=== PATIENT | female | born 1950 | race Caucasian/White ===

== ENCOUNTER 2017-12-30 13:02 | Emergency (ER) | payer OTHER, BC ==
--- OUTSIDE RECORDS SUMMARY | 2017-12-30 13:05 | XMS REPORT | Clinical Summary ---
:1950 Author Organization [facility] Address [address] [place] [address] Care Team Providers Name Role Phone Asked, No Pcp Primary Care Provider Unavailable Allergies Not on File Current Medications Not on file Active Problems Not on file Encounters Date Type Specialty Care Team Description 10/13/2017 Hospital Encounter Radiology Moiz Frost, Encounter for screening MD mammogram for malignant neoplasm of breast 10/13/2017 Ancillary Orders Access Moiz Frost, Encounter for screening MD mammogram for malignant neoplasm of breast 10/03/2017 Transcribe Orders Access Moiz Frost, Menopausal problem MD (Primary Dx) 10/03/2017 Transcribe Orders Access Moiz Frost, Encounter for screening MD mammogram for malignant neoplasm of breast (Primary Dx) after 12/29/2016 Family History Medical History Relation Name Comments Breast cancer Maternal Grandmother Breast cancer Mother Relation Name Status Comments Maternal Grandmother Mother Social History Tobacco Use Types Packs/Day Years Used Date Never Assessed Sex Assigned at Date Recorded Not on file Last Filed Vital Signs Not on file Plan of Treatment Date Type Specialty Care Team Description 09/21/2018 [place] [address] [facility] [address] [place], [place] [address] Health Maintenance Due Date Last Done Comments COLONOSCOPY 2001 ZOSTER VACCINE 2011 PNEUMOCOCCAL POLYSACCHARIDE VACCINE 2016 AGE 65 AND OVER PNEUMOCOCCAL-13 2016 INFLUENZA VACCINE 04/25/2018 MAMMOGRAM 10/13/2019 10/13/2017, 09/21/2016, 08/11/2015, Additional history exists Results Mammo Breast Screen Tomosynthesis Bilateral (10/13/2017 11:14 AM) Specimen Performing Laboratory [facility] [address] [place] [address] Narrative PROCEDURE: MAMMO BREAST SCREEN TOMOSYNTHESIS BILATERAL Computer aided detection was utilized for the interpretation. Bilateral digital screening mammogram was performed with tomosynthesis. COMPARISON EXAMS: [id number] DENSITY:There are scattered areas of fibroglandular density. FINDINGS: No suspicious finding is seen. There are vascular calcifications. Nodular densities appear stable. IMPRESSION: No mammographic evidence of malignancy. Recommend annual screening mammography and correlation with physical exam. BI-RADS 2:BENIGN This facility is accredited by the [employer] for Mammography. A negative x-ray report should not delay biopsy if a dominant or clinically suspicious mass is present.Not all cancers are identified by x-ray. [id number] after 12/29/2016 Insurance Payer Benefit Plan / Group Subscriber ID Type Phone Address MEDICARE MEDICARE PART A AND B xxxxxxxxxx Medicare [place], [place] BCBS BCBS CHOICE PPO/FEDERAL EMPL PPO xxxxxxxxxxxx PPO Home: [address] [place], [place] [phone] [place] [address]
[2017-12-30 15:01] LABS: Absolute Lymphocytes (CBC) 0.9 K/uL (0.7-4.9); Absolute Monocytes 0.3 K/uL (0.1-1.3); Absolute Neutrophil 8.1 K/uL (1.8-8.0); Basophils % 0.7 % (0-1.3); Eosinophils % 0.1 % (0-4.4); Hematocrit 41.8 % (36.0-45.0); Lymphocytes % 9.3 % (15.3-44.8); MCV 87.1 fL (80-100); MPV 8.7 fL (7.6-11.3); Monocytes % 3.4 % (3.3-12.3)
[2017-12-30 15:19] LABS: Albumin 5.2 g/dL (3.2-5.5); Bilirubin Direct 0.1 mg/dL (0-0.2); Bilirubin Total 0.7 mg/dL (0.3-1.2); Protein, Total 8.1 g/dL (6.0-8.3)
[2017-12-30] MEDS ORDERED: NA CHLORIDE 0.9% 1,000 ML ONE (16:05)
[2017-12-30] MEDS ORDERED: ONDANSETRON 4 MG/2 ML VIAL ONE ×2 (16:05→19:23)
[2017-12-30] MEDS ORDERED: HYDRALAZINE HCL 20 MG/ML VIAL ONE ×2 (16:05→19:23)
[2017-12-30 16:20] LABS: Blood Morphology Comment NOT SEEN (NOT SEEN); Platelet Estimate ADEQ; Urine White Blood Cell Casts OK
[2017-12-30] MEDS ORDERED: HYDROCODONE/APAP 10/325 TAB ONE (16:23)
--- NOTE | 2017-12-30 18:01 | RAD REPORT ---
EXAM DESCRIPTION: CTAbdomen Pelvis W Contrast - 12/30/2017 5:51 pm CLINICAL HISTORY: Abdominal pain. COMPARISON: None. TECHNIQUE: Biphasic CT imaging of the abdomen and pelvis was performed with 100 ml non-ionic IV cont rast. All CT scans are performed using dose optimization technique as appropriate and may include automated exposure control or mA/KV adjustment according to patient size. FINDINGS: The lung bases are clear. The liver, spleen, pancreas, adrenal glands and kidneys are within normal limits. No bowel obstruction, free air, free fluid or abscess. The appendix is normal. No evidence of signi ficant lymphadenopathy. No suspicious bony findings. A pessary device is noted. IMPRESSION: No acute intra-abdominal or pelvic finding.
--- NOTE | 2017-12-30 18:15 | ER ---
Nurse's Notes [facility] Name: Laury Lomeli Age: 67 yrs Sex: Female : 1950 Arrival Date: 12/30/2017 Time: 13:03 Bed 13 Private MD: Diagnosis: Low back pain;Lower abdominal pain, unspecified;Essential (primary) hypertension Presentation: 12/30 13:05 Presenting complaint: Patient states: RLQ and right lower back pain and nausea since hb this morning. Pt also reports she had a colonoscopy November 23 and has been having lower abdominal pain and bloating ever since. Transition of care: patient was not received from another setting of care. Onset of symptoms is unknown. Care prior to arrival: None. 13:05 Method Of Arrival: Ambulatory hb 13:05 Acuity: JAI 3 hb Historical: - Allergies: 13:08 Sulfa (Sulfonamide Antibiotics); hb - Home Meds: 13:08 levothyroxine 50 mcg tab 1 tab once daily [Active]; lisinopril 20 mg Oral tab 1 tab hb once daily [Active]; Contrave 8-90 mg Oral TbER two tabs in the monring and one at night [Active]; - PMHx: 13:08 Hypothyroidism; Hypertension; sciatica; hb - PSHx: 13:08 Hysterectomy; hb - Immunization history:: Adult Immunizations up to date. - Social history:: Smoking status: Patient/guardian denies using tobacco. - Family history:: not pertinent. - History obtained from: . Screenin:20 Abuse screen: Denies threats or abuse. Nutritional screening: No deficits noted. rb1 Tuberculosis screening: No symptoms or risk factors identified. Fall Risk None identified. Assessment: 14:20 General: Appears uncomfortable, Behavior is calm, cooperative. General: Denies fever. rb1 General: pt. had a colonoscopy done on November 23, 2017 and recently started having abdominal pain.. Pain: Complains of pain in right lower quadrant and right lower back Pain currently is 9 out of 10 on a pain scale. Neuro: Level of Consciousness is awake, alert, obeys commands, Oriented to person, place, time, situation. Cardiovascular: Capillary refill < 3 seconds is brisk in bilateral fingers. Respiratory: Airway is patent Respiratory effort is even, unlabored, Respiratory pattern is regular, symmetrical. GI: Bowel sounds present X 4 quads. Abd is soft Abdomen is tender to palpation in right lower quadrant Reports diarrhea, nausea. : No signs and/or symptoms were reported regarding the genitourinary system. Derm: Skin is pink, warm \T\ dry. Musculoskeletal: Range of motion: intact in all extremities. 15:20 Reassessment: Patient appears in no apparent distress at this time. Patient and/or rb1 family updated on plan of care and expected duration. Pain level reassessed. Patient is alert, oriented x 3, equal unlabored respirations, skin warm/dry/pink. 16:20 Reassessment: Patient appears in no apparent distress at this time. No changes from rb1 previously documented assessment. 16:27 Reassessment: Called CT to let them know that the pt. finished her contrast. rb1 17:19 Reassessment: Patient appears in no apparent distress at this time. Patient and/or rb1 family updated on plan of care and expected duration. Pain level reassessed. Patient is alert, oriented x 3, equal unlabored respirations, skin warm/dry/pink. 17:59 Reassessment: Pt. is back from CT. rb1 18:12 Reassessment: Patient appears in no apparent distress at this time. Patient and/or rb1 family updated on plan of care and expected duration. Pain level reassessed. Patient is alert, oriented x 3, equal unlabored respirations, skin warm/dry/pink. at bedside. 19:26 Reassessment: JEEPER OPERATOR stated that pt could be discharge when pain and BP have improved. tl2 20:10 Reassessment: Patient appears in no apparent distress at this time. Patient and/or tl2 family updated on plan of care and expected duration. Pain level reassessed. Patient is alert, oriented x 3, equal unlabored respirations, skin warm/dry/pink. Pt verbalized understanding of discharge instructions, need for follow up and prescription usage. Pt began vomiting during discharge, JEEPER OPERATOR notified, new orders see MAR. new prescription. Vital Signs: 13:08 BP 192 / 111; Pulse 92; Resp 16; Temp 97.2; Pulse Ox 100% on R/A; Weight 69.4 kg; hb Height 5 ft. 3 in. (160.02 cm); Pain 6/10; 14:20 BP 199 / 95; Pulse 71; Resp 19; Pulse Ox 100% on R/A; Pain 9/10; rb1 15:00 BP 196 / 90; Pulse 67; Resp 18; Pulse Ox 100% ; rb1 15:47 BP 193 / 91; Pulse 69; Resp 17; Pulse Ox 100% on R/A; rb1 16:30 BP 183 / 93; Pulse 78; Resp 19; Pulse Ox 100% on R/A; rb1 17:30 BP 181 / 92; Pulse 96; Resp 17; Pulse Ox 100% on R/A; rb1 20:10 BP 146 / 88; Pulse 106; Resp 20; Pulse Ox 100% on R/A; tl2 13:08 Body Mass Index 27.10 (69.40 kg, 160.02 cm) hb ED Course: 13:03 Patient arrived in ED. as 13:08 Triage completed. hb 13:08 Arm band placed on left wrist. hb 14:20 Patient has correct armband on for positive identification. Bed in low position. Call rb1 light in reach. Side rails up X 1. Pulse ox on. NIBP on. 14:20 Inserted saline lock: 22 gauge in right antecubital area, using aseptic technique. rb1 Blood collected. 14:21 Gretta Meeks, ANTONETTE is Primary Nurse. rb1 14:28 Angelina Solis FNP is PHCP. kav 14:28 Jd Bocanegra MD is Attending Physician. kav 17:50 CT Abd/Pelvis - W/Contrast: LLQ and RLQ Abd pain In Process Unspecified. EDMS 18:22 PHCP role handed off by Angelina Solis FNP pm1 18:22 Jovon Ling NP is PHCP. pm1 19:00 Report given to ANTONETTE Ruvalcaba. rb1 20:10 No provider procedures requiring assistance completed. IV discontinued, intact, tl2 bleeding controlled, No redness/swelling at site. Pressure dressing applied. Administered Medications: 15:49 Drug: hydrALAZINE 10 mg {Note: BP 193/91 P 71.} Route: IV; Rate: bolus; Site: right rb1 antecubital; 15:51 Follow up: IV Status: Completed infusion rb1 16:09 Follow up: Response: No adverse reaction; Blood pressure is lowered rb1 15:49 Drug: NS 0.9% 1000 ml Route: IV; Rate: 1 bolus; Site: right antecubital; rb1 17:00 Follow up: IV Status: Completed infusion rb1 15:49 Drug: Zofran 4 mg Route: IVP; Site: right antecubital; rb1 16:09 Follow up: Response: No adverse reaction; Nausea is decreased rb1 16:04 Drug: [place] 10 mg-325 mg 1 tabs Route: PO; rb1 16:35 Follow up: Response: No adverse reaction; Pain is decreased rb1 19:05 Drug: hydrALAZINE 10 mg Route: IV; Rate: bolus; Site: right antecubital; rb1 20:14 Follow up: IV Status: Completed infusion tl2 19:05 Drug: morphine 4 mg Route: IVP; Site: right antecubital; rb1 19:40 Follow up: Response: No adverse reaction; Pain is decreased tl2 19:05 Drug: Zofran 4 mg Route: IVP; Site: right antecubital; rb1 20:14 Follow up: Response: No adverse reaction; Nausea is decreased tl2 20:10 Drug: Zofran 4 mg Route: PO; tl2 20:14 Follow up: Response: No adverse reaction; Medication administered at discharge. tl2 Outcome: 18:14 Discharge ordered by . richie 20:10 Discharged to home ambulatory, with family. tl2 20:10 Condition: stable 20:10 Discharge instructions given to patient, family, Instructed on discharge instructions, follow up and referral plans. medication usage, Demonstrated understanding of instructions, follow-up care, medications, Prescriptions given X 2. 20:15 Patient left the ED. tl2 Signatures: Dispatcher [employer] EDMS Angelina Solis, FURNITURE MOVER FURNITURE MOVERNikki Al Rebecca RN RN rb1 Jovon Ling, MOLLY JEEPER OPERATOR pm1 Roxane Omer RN RN Peg Shell RN RN tl2 Corrections: (The following items were deleted from the chart) 15:06 14:47 BP 199 / 95; Pulse 71bpm; Resp 19bpm; Pulse Ox 100% RA; Pain 9/10; rb1 rb1 19:16 17:05 hydrALAZINE 10 mg IV at bolus in right antecubital rb1 rb1 19:16 17:05 morphine 4 mg IVP in right antecubital rb1 rb1
--- NOTE | 2017-12-30 18:15 | EDPHYS ---
Physician Documentation [facility] Name: Laury Lomeli Age: 67 yrs Sex: Female : 1950 Arrival Date: 12/30/2017 Time: 13:03 Bed 13 Private MD: ED Physician Jd Bocanegra HPI: 12/30 14:28 This 67 yrs old Female presents to ER via Ambulatory with complaints of kav Abdominal Pain, Back Pain. 15:55 The patient presents with abdominal pain right lower quadrant, in the left lower kav quadrant. Onset: The symptoms/episode began/occurred acutely. 15:56 The symptoms do not radiate. Associated signs and symptoms: Pertinent positives: kav nausea, bloating. The symptoms are described as constant, dull. Modifying factors: The symptoms are alleviated by nothing, the symptoms are aggravated by touching the area. Modifying factors: The symptoms are alleviated by. Severity of pain: At its worst the pain was moderate just prior to arrival. The patient has not experienced similar symptoms in the past. Colonoscopy November 23, 2017 in [place], [place]. Patient reports finding of "...ulcer in colon".. 15:58 Patient reports that she has been taking prescription : Mobic daily for the past 19 kav days. Rates abdominal pain \\T\\ 03/04. Historical: - Allergies: 13:08 Sulfa (Sulfonamide Antibiotics); hb - Home Meds: 13:08 levothyroxine 50 mcg tab 1 tab once daily [Active]; lisinopril 20 mg Oral tab 1 tab hb once daily [Active]; Contrave 8-90 mg Oral TbER two tabs in the monring and one at night [Active]; - PMHx: 13:08 Hypothyroidism; Hypertension; sciatica; hb - PSHx: 13:08 Hysterectomy; hb - Immunization history:: Adult Immunizations up to date. - Social history:: Smoking status: Patient/guardian denies using tobacco. - Family history:: not pertinent. - History obtained from: . ROS: 15:58 Constitutional: Negative for fever, chills, and weight loss, Eyes: Negative for injury, kav pain, redness, and discharge, ENT: Negative for injury, pain, and discharge, Neck: Negative for injury, pain, and swelling, Cardiovascular: Negative for chest pain, palpitations, and edema, Respiratory: Negative for shortness of breath, cough, wheezing, and pleuritic chest pain, Back: Negative for injury and pain, : Negative for injury, bleeding, discharge, and swelling, MS/Extremity: Negative for injury and deformity, Skin: Negative for injury, rash, and discoloration, Neuro: Negative for headache, weakness, numbness, tingling, and seizure, Psych: Negative for depression, anxiety, suicide ideation, homicidal ideation, and hallucinations, Allergy/Immunology: Negative for hives, rash, and allergies, Endocrine: Negative for neck swelling, polydipsia, polyuria, polyphagia, and marked weight changes, Hematologic/Lymphatic: Negative for swollen nodes, abnormal bleeding, and unusual bruising. 15:58 Abdomen/GI: Positive for abdominal pain, nausea, Abdominal bloating. Exam: 15:58 Constitutional: This is a well developed, well nourished patient who is awake, alert, kav and in no acute distress. Head/Face: Normocephalic, atraumatic. Eyes: Pupils equal round and reactive to light, extra-ocular motions intact. Lids and lashes normal. Conjunctiva and sclera are non-icteric and not injected. Cornea within normal limits. Periorbital areas with no swelling, redness, or edema. ENT: Nares patent. No nasal discharge, no septal abnormalities noted. Tympanic membranes are normal and external auditory canals are clear. Oropharynx with no redness, swelling, or masses, exudates, or evidence of obstruction, uvula midline. Mucous membranes moist. Neck: Trachea midline, no thyromegaly or masses palpated, and no cervical lymphadenopathy. Supple, full range of motion without nuchal rigidity, or vertebral point tenderness. No Meningismus. Chest/axilla: Normal chest wall appearance and motion. Nontender with no deformity. No lesions are appreciated. Cardiovascular: Regular rate and rhythm with a normal S1 and S2. No gallops, murmurs, or rubs. Normal PMI, no JVD. No pulse deficits. Respiratory: Lungs have equal breath sounds bilaterally, clear to auscultation and percussion. No rales, rhonchi or wheezes noted. No increased work of breathing, no retractions or nasal flaring. Back: No spinal tenderness. No costovertebral tenderness. Full range of motion. Skin: Warm, dry with normal turgor. Normal color with no rashes, no lesions, and no evidence of cellulitis. MS/ Extremity: Pulses equal, no cyanosis. Neurovascular intact. Full, normal range of motion. Neuro: Awake and alert, GCS 15, oriented to person, place, time, and situation. Cranial nerves II-XII grossly intact. Motor strength 5/5 in all extremities. Sensory grossly intact. Cerebellar exam normal. Normal gait. Psych: Awake, alert, with orientation to person, place and time. Behavior, mood, and affect are within normal limits. 15:58 Abdomen/GI: Inspection: distension, that is mild, in the right lower quadrant and left lower quadrant, Bowel sounds: active, all quadrants, Palpation: soft, moderate abdominal tenderness, in the suprapubic area, right lower quadrant and left lower quadrant. Vital Signs: 13:08 BP 192 / 111; Pulse 92; Resp 16; Temp 97.2; Pulse Ox 100% on R/A; Weight 69.4 kg; hb Height 5 ft. 3 in. (160.02 cm); Pain 6/10; 14:20 BP 199 / 95; Pulse 71; Resp 19; Pulse Ox 100% on R/A; Pain 9/10; rb1 15:00 BP 196 / 90; Pulse 67; Resp 18; Pulse Ox 100% ; rb1 15:47 BP 193 / 91; Pulse 69; Resp 17; Pulse Ox 100% on R/A; rb1 16:30 BP 183 / 93; Pulse 78; Resp 19; Pulse Ox 100% on R/A; rb1 17:30 BP 181 / 92; Pulse 96; Resp 17; Pulse Ox 100% on R/A; rb1 20:10 BP 146 / 88; Pulse 106; Resp 20; Pulse Ox 100% on R/A; tl2 13:08 Body Mass Index 27.10 (69.40 kg, 160.02 cm) hb MDM: 14:29 Patient medically screened. ka 15:58 Data reviewed: vital signs, nurses notes. ka 18:09 Transition of care: After a detail discussion of the patient's case, care is ka transferred to Jovon Ling NP. 18:10 ED course: awaiting urine dipstick results. [facility] 12/30 14:29 Order name: Amylase, Serum; Complete Time: 15:40 [facility] 12/30 15:40 Interpretation: Within normal limits: RYLAND 45. ka 12/30 14:29 Order name: Basic Metabolic Panel; Complete Time: 15:40 kav 12/30 15:40 Interpretation: Normal except: GLUC 121; GFR 55. 12/30 14:29 Order name: CBC with Diff; Complete Time: 17:08 kav 12/30 15:41 Interpretation: Normal except: DELGADO% 86.5; LYM% 9.3; NEUT A 8.1. 12/30 14:29 Order name: Creatinine for Radiology; Complete Time: 15:41 kav 12/30 15:41 Interpretation: Normal except: GFR 55. v 12/30 14:29 Order name: Hepatic Function; Complete Time: 15:41 kav 12/30 15:41 Interpretation: Within normal limits. 12/30 14:29 Order name: Lipase; Complete Time: 15:41 kav 12/30 15:41 Interpretation: Within normal limits. 12/30 14:29 Order name: Urine Microscopic Only; Complete Time: 20:00 v 12/30 15:46 Order name: CT Abd/Pelvis - W/Contrast: LLQ and RLQ Abd pain; Complete Time: 18:02 kav 12/30 18:02 Interpretation: No acute disease. 12/30 16:20 Order name: CBC Smear Scan; Complete Time: 17:08 EDMS 12/30 18:04 Interpretation: RBC ABNOR MORPH NOT SEEN. 12/30 18:30 Order name: Urine Dipstick--Ancillary (enter results); Complete Time: 20:00 bd 12/30 14:29 Order name: IV Saline Lock; Complete Time: 15:01 kav 12/30 14:29 Order name: Labs collected and sent; Complete Time: 15:01 ka 12/30 14:29 Order name: Urine Dipstick-Ancillary (obtain specimen); Complete Time: 18:13 [facility] 12/30 18:13 Interpretation: Normal except: Ketones. kav Administered Medications: 15:49 Drug: hydrALAZINE 10 mg {Note: BP 193/91 P 71.} Route: IV; Rate: bolus; Site: right rb1 antecubital; 15:51 Follow up: IV Status: Completed infusion rb1 16:09 Follow up: Response: No adverse reaction; Blood pressure is lowered rb1 15:49 Drug: NS 0.9% 1000 ml Route: IV; Rate: 1 bolus; Site: right antecubital; rb1 17:00 Follow up: IV Status: Completed infusion rb1 15:49 Drug: Zofran 4 mg Route: IVP; Site: right antecubital; rb1 16:09 Follow up: Response: No adverse reaction; Nausea is decreased rb1 16:04 Drug: [place] 10 mg-325 mg 1 tabs Route: PO; rb1 16:35 Follow up: Response: No adverse reaction; Pain is decreased rb1 19:05 Drug: hydrALAZINE 10 mg Route: IV; Rate: bolus; Site: right antecubital; rb1 20:14 Follow up: IV Status: Completed infusion tl2 19:05 Drug: morphine 4 mg Route: IVP; Site: right antecubital; rb1 19:40 Follow up: Response: No adverse reaction; Pain is decreased tl2 19:05 Drug: Zofran 4 mg Route: IVP; Site: right antecubital; rb1 20:14 Follow up: Response: No adverse reaction; Nausea is decreased tl2 20:10 Drug: Zofran 4 mg Route: PO; tl2 20:14 Follow up: Response: No adverse reaction; Medication administered at discharge. tl2 Disposition: 12/31 07:06 Co-signature as Attending Physician, Jd Bocanegra MD. rn Disposition: 12/30/17 18:14 Discharged to Home. Impression: Low back pain, Lower abdominal pain, unspecified, Essential (primary) hypertension. - Condition is Stable. - Discharge Instructions: Abdominal Pain, Adult, Back Pain, Adult, Hypertension, [id number], How to Take Your Blood Pressure, Riry-[id number], Back Exercises, [id number], DASH Eating Plan, Managing Your High Blood Pressure. - Prescriptions for Tramadol 50 mg Oral Tablet - take 1 tablet by ORAL route every 8 hours as needed; 12 tablet. Zofran 4 mg Oral Tablet - take 1 tablet by ORAL route every 8 hours As needed; 20 tablet. - Medication Reconciliation Form, Thank You Letter, Antibiotic Education, Prescription Opioid Use form. - Follow up: Private Physician; When: 2 - 3 days; Reason: Recheck today's complaints, Continuance of care, Re-evaluation by your physician. - Problem is new. - Symptoms have improved. Signatures: Dispatcher [employer] Angelina Feliciano, PRESS LOADER PRESS LOADER Jd Soriano MD MD rn Barber, Rebecca, RN RN rb1 Jovon Ling, JAVA DESIGNER JAVA DESIGNER pm1 Roxane Omer RN RN Peg Dorado RN RN tl2 Corrections: (The following items were deleted from the chart) 12/30 17:53 17:08 Within normal limits. kav kav 18:03 17:08 OrderId: [id number] PrecursorText: InterpretationText: kav kav 18:03 18:03 Within normal limits. kav kav 18:04 18:03 OrderId: [id number] PrecursorText: InterpretationText: kav kav
[2017-12-30 18:34] LABS: Urine Blood NEGATIVE (NEG); Urine Glucose NEGATIVE (NEG); Urine Protein NEGATIVE (NEG); Urine pH 6.5 (5.0-7.0)
[2017-12-30 19:03] LABS: Urine Bacteria <20 /HPF (<20); Urine Culture Reflex Order NOT NEEDED; Urine Mucus 1+ /HPF (NONE SEEN); Urine RBC NONE SEEN /HPF (NONE SEEN); Urine White Blood Cell Casts 0-5 /LPF (NONE SEEN)
[2017-12-30] MEDS ORDERED: MORPHINE 4 MG/ML SYR ONE (19:23)
[2017-12-30] MEDS ORDERED: ONDANSETRON 4 MG (ODT) TAB ONE (20:27)
== END 2017-12-30 20:15 | disposition home or self-care (01) ==
LOC: ER 13:02
DX: M54.5 Low back pain (principal); I10 Essential (primary) hypertension; E03.9 Hypothyroidism, unspecified; Z88.2 Allergy status to sulfonamides
CPT/HCPCS: 36415; 74177; 80048; 80076; 82150; 83690; 85025; 96361; 96365; 96375; 99284; J0360 ×2; J2405 ×2; J7030; Q9967; 81003; 81015

== ENCOUNTER 2022-09-01 06:56 | Day surgery (SDC) | payer OTHER, BC ==
[2022-09-01] MEDS ORDERED: Ringers Lactate 1,000 ML IV ONE (07:13)
[2022-09-01] MEDS ORDERED: LIDOCAINE 1% MPF 5 ML VIAL ONE (08:16)
[2022-09-01] MEDS ORDERED: propofoL 200 MG/20 ML VIAL IV ONE (08:16)
--- NOTE | 2022-09-01 08:37 | ENDO RPT ---
[address], [address] COLONOSCOPY PROCEDURE REPORT EXAM DATE: 09/01/2022 PATIENT NAME: Laury Lomeli MR #: [id number] BIRTHDATE: 1950 ATTENDING: Srinivasa Doe DR STATUS: outpatient BOX LOADER: Madison Cool RN and Hernandez Ceballos [facility] INDICATIONS: The patient is a 72 yr old Female here for a colonoscopy due to colon cancer screening PROCEDURE PERFORMED: Colonoscopy with biopsy - cold polypectomy MEDICATIONS: Per Anesthesia. ESTIMATED BLOOD LOSS: None CONSENT: The patient understands the risks and benefits of the procedure and understands that these risks include, but are not limited to: sedation, allergic reaction, infection, perforation and/or bleeding. Alternative means of evaluation and treatment include, among others: physical exam, x-rays, and/or surgical intervention. The patient elects to proceed with this endoscopic procedure. DESCRIPTION OF PROCEDURE: During intra-op preparation period all mechanical medical equipment was checked for proper function. Hand hygiene and appropriate measures for infection prevention was taken. Procedure, possible complications, alternatives including, but not limited to possibility of bleeding, perforation, tear, infection, sepsis, need for surgery, need for blood transfusion, were explained to the patient. After the risks, benefits and alternatives of the procedure were thoroughly explained, Informed consent was verified, confirmed and timeout was successfully executed by the treatment team. The patient was placed in the left lateral position. A digital rectal exam was performed and revealed internal hemorrhoids and A digital rectal exam was performed and revealed several skin tags. After appropriate level of anesthesia, the scope was passed. The EC-[id number] ([id number]) endoscope was introduced through the anus and advanced to the cecum, which was identified by both the appendix and ileocecal valve. The quality of the prep was good. The instrument was then slowly withdrawn as the colon was fully examined. Scope withdrawal time was 8 minutes. COLON FINDINGS: Two smooth sessile polyps ranging between 3-5mm in size were found at the cecum and in the sigmoid colon. A polypectomy was performed with cold forceps. The resection was complete, the polyp tissue was completely retrieved and sent to histology. Mild diverticulosis was noted in the sigmoid colon. No bleeding was noted from the diverticulosis. Small internal and external hemorrhoids were found. Retroflexed views revealed no abnormalities. The scope was then completely withdrawn from the patient and the procedure terminated. ADVERSE EVENTS: There were no complications. IMPRESSIONS: 1. Two sessile polyps ranging between 3-5mm in size were found at the cecum and in the sigmoid colon; polypectomy was performed in a piecemeal fashion with cold forceps 2. Mild diverticulosis was noted in the sigmoid colon 3. Small internal and external hemorrhoids RECOMMENDATIONS: 1. avoid NSAIDS for 2 weeks 2. fiber rich diet 3. follow-up: office 2 week(s) 4. Monitor for any evidence of rectal bleeding. 5. increase dietary water 6. hemorrhoidal hygiene RECALL: for Colonoscopy, pending biopsy results. Srinivasa Doe DR eSigned: Srinivasa Doe DR 09/01/2022 8:36 AM cc: CPT CODES: ICD9 CODES: PATIENT NAME: Laury Lomeli MR#: [id number]
[2022-09-01 09:14] VITALS: TEMP 97; O2SAT 100
[2022-09-01 09:15] VITALS: BP 113/74
== END 2022-09-01 09:11 | disposition home or self-care (01) ==
LOC: OR 06:56
PROVIDERS: ATTEND Surgery
PROC: 0DBN8ZX Excision of Sigmoid Colon, Via Natural or Artificial Opening Endoscopic, Diagnostic (ICD-10-PCS; 2022-09-01)
PROC: 0DBH8ZX Excision of Cecum, Via Natural or Artificial Opening Endoscopic, Diagnostic (ICD-10-PCS; principal; 2022-09-01 08:30)
DX: Z12.11 Encounter for screening for malignant neoplasm of colon (principal); D12.5 Benign neoplasm of sigmoid colon; D12.0 Benign neoplasm of cecum; K64.8 Other hemorrhoids; K64.4 Residual hemorrhoidal skin tags; K57.30 Diverticulosis of large intestine without perforation or abscess without bleeding; Z85.3 Personal history of malignant neoplasm of breast; I51.9 Heart disease, unspecified
CPT/HCPCS: 88305; 45380; J2704; J2001; J7120